=== PATIENT | female | born 1935 | race African-American/Black ===

== ENCOUNTER 2019-02-22 10:27 | Emergency (ER) | payer OTHER, MEDICAID, MEDICARE ==
[~2019-02-22] VITALS: Ht 160 cm; Wt 92.0 kg
[2019-02-22] MEDS ORDERED: LIDOCAINE HCL/PF 1% 10 MG/ML 5ML VIAL IJ ONE (11:00)
[2019-02-22] MEDS ORDERED: TETANUS, DIPHTHERIA, PERTUSSIS VAC/PF 0.5ML (>7YR OLD) IM ONE (11:00)
[2019-02-22 13:20] VITALS: BP 164/54
== END 2019-02-22 13:23 | disposition home or self-care (01) ==
LOC: ER 10:27
DX: S02.2XXA Fracture of nasal bones, initial encounter for closed fracture (principal); S01.81XA Laceration without foreign body of other part of head, initial encounter; W01.0XXA Fall on same level from slipping, tripping and stumbling without subsequent striking against object, initial encounter; Y93.9 Activity, unspecified; Y92.9 Unspecified place or not applicable; I10 Essential (primary) hypertension; E11.9 Type 2 diabetes mellitus without complications
CPT/HCPCS: 12011; 70450; 70486; 90471; 90715; 99284; J3490